=== PATIENT | male | born 1985 | race Caucasian/White ===

== ENCOUNTER 2016-09-12 22:30 | Observation (INO) | payer OTHER ==
[~2016-09-12] VITALS: Ht 177.8 cm; Wt 91.2 kg
[2016-09-12 22:34] VITALS: BP 130/93; PULSE 82; RESP 18; TEMP 98.6; O2SAT 98
[2016-09-12] MEDS ORDERED: ADDE20 PO (22:46)
[2016-09-12] MEDS ORDERED: SODIUM CHLOR 0.9% 1000 ML INJ 1,000 ML IV SCH (23:27)
[2016-09-12] MEDS ORDERED: ONDANSETRON HCL 4 MG/2 ML VIAL IVP ONE (23:30)
[2016-09-12] MEDS ORDERED: SODIUM CHLORIDE 0.9% FLUSH 5 ML FLUSH IVF PRN (23:30)
[2016-09-12] MEDS ORDERED: HYDROmorphone HCL PF 1 MG/ML VIAL IV PUSH ONE (23:30)
--- NOTE | 2016-09-12 23:42 | RADHPO ---
EXAM DATE/TIME: 09/12/2016 23:34 [facility] COMPARISON: No previous studies available for comparison. INDICATIONS : Patient states left side chest pains. MEDICAL HISTORY : None. SURGICAL HISTORY : None. ENCOUNTER: Initial ACUITY: 1 day PAIN SCORE: 7/10 LOCATION: Bilateral chest FINDINGS: A single view of the chest demonstrates the lungs to be symmetrically aerated without evidence of mas s, infiltrate or effusion. The cardiomediastinal contours are unremarkable. Osseous structures are intact. CONCLUSION: The lungs are clear. No evidence of pneumothorax. Jens Restrepo MD on September 12, 2016 at 23:40 Board Certified Radiologist. This report was verified electronically.
--- NOTE | 2016-09-12 23:43 | PD ---
HPI Chief Complaint: Abdominal Pain Time Seen by Provider: 23:27 Travel History International Travel<30 days: No Contact w/Intl Traveler<30days: No Traveled to known affect area: No History of Present Illness HPI 30-year-old male presents to the emergency department by private transportation for 6 hours of progressive worsening abdominal pain. Patient states proximally 5 hours prior to arrival to the emergency department he started noticing abdominal pain across the upper abdomen with discomfort there is progressive worsening. Patient now notes heel strike pain. Patient has had no nausea no vomiting or anorexia. Patient denies fever chills. No dysuria frequency urgency or diarrhea. Patient identifies that pain is primarily left-sided. Patient denies any referred pain into the flank or groin. Patient denies any testicular pain or penile discharge. Patient denies any testicular or groin injury or trauma. Patient rates pain 7/10 in intensity. No prior history of GI or abdominal pain or illness. No history of inflammatory bowel disease pancreatitis peptic ulcer disease or gallbladder disease. No previous abdominal surgeries. Patient does have history of ADHD and takes medication on an as-needed basis only. Admits to alcohol use and marijuana use. [facility] Past Medical History Narrative Medical ADHD ADD anxiety no surgeries positive alcohol use positive marijuana use nursing notes reviewed ADD: Yes ADHD: Yes Depression: Yes Diminished Hearing: No Tetanus Vaccination: > 5 Years Influenza Vaccination: No Past Surgical History Surgical History: No Previous Surgery Social History Alcohol Use: Yes (3 LIQUOR PER DAY ) Tobacco Use: No Substance Use: Yes (MARIJUANA) Allergies-Medications (Allergen,Severity, Reaction): Coded Allergies: No Known Allergies (Unverified , 09/12/16) Reported Meds & Prescriptions Reported Meds & Active Scripts Active Reported Adderall (Amphetamine-Dextroamphetamine) 20 Mg Tab 20 Mg PO DAILY Avoid late evening doses. Space doses at least 4 to 6 hours if more than once/day dosing. Review of Systems Except as stated in HPI: all other systems reviewed are Neg Physical Exam Narrative GENERAL: Well-developed well-nourished male in obvious discomfort no respiratory distress SKIN: Warm and dry. HEAD: Normocephalic. EYES: No scleral icterus. No injection or drainage. NECK: Supple, trachea midline. No JVD or lymphadenopathy. CARDIOVASCULAR: Regular rate and rhythm without murmurs, gallops, or rubs. RESPIRATORY: Breath sounds equal bilaterally. No accessory muscle use. GASTROINTESTINAL: Abdomen soft, bilateral lower quadrant tenderness with voluntary guarding and rebound right lower quadrant, nondistended. MUSCULOSKELETAL: No cyanosis, or edema. BACK: Nontender without obvious deformity. No CVA tenderness. Data Data Last Documented VS Vital Signs Date Time Temp Pulse Resp B/P Pulse Ox O2 Delivery O2 Flow Rate FiO2 09/13/16 03:15 87 16 133/62 99 Room Air 09/12/16 22:34 98.6 Orders Complete Blood Count With Diff (09/12/16 23:27) Comprehensive Metabolic Panel (09/12/16 23:27) Lipase (09/12/16 23:27) Urinalysis - C+S If Indicated (09/12/16 23:27) Iv Access Insert/Monitor (09/12/16 23:27) Ecg Monitoring (09/12/16 23:27) Oximetry (09/12/16 23:27) Ondansetron Inj (Zofran Inj) (09/12/16 23:30) Sodium Chlor 0.9% 1000 Ml Inj (Ns 1000 M (09/12/16 23:27) Sodium Chloride 0.9% Flush (Ns Flush) (09/12/16 23:30) Chest, Single Ap (09/12/16 23:27) Hydromorphone Pf Inj (Dilaudid Pf Inj) (09/12/16 23:30) NPO (09/12/16 23:27) Ct Abd/Pel W Iv Contrast(Rout) (09/13/16 23:27) Iohexol 350 Inj (Omnipaque 350 Inj) (09/13/16 02:48) Ketorolac Inj (Toradol Inj) (09/13/16 03:30) Sodium Chlor 0.9% 1000 Ml Inj (Ns 1000 M (09/13/16 04:15) Piperacil-Tazo 3.375 Gm Premix (Zosyn 3. (09/13/16 04:15) Hydromorphone Pf Inj (Dilaudid Pf Inj) (09/13/16 04:15) Admit Order (Ed Use Only) (09/13/16 ) Diet Npo (09/14/16 Breakfast) ^ Saline Lock (09/13/16 04:11) Resp Oxygen George C Titrat 1-4 L (09/13/16 ) ^ Notify Dr: Other (09/13/16 04:11) Sodium Chloride 0.9% Flush (Ns Flush) (09/13/16 09:00) Sodium Chloride 0.9% Flush (Ns Flush) (09/13/16 04:15) Labs Laboratory Tests Test 09/12/16 23:00 White Blood Count 12.8 TH/MM3 Red Blood Count 4.93 MIL/MM3 Hemoglobin 14.7 GM/DL Hematocrit 43.0 % Mean Corpuscular Volume 87.3 FL Mean Corpuscular Hemoglobin 29.9 PG Mean Corpuscular Hemoglobin 34.3 % Concent Red Cell Distribution Width 12.0 % Platelet Count 237 TH/MM3 Mean Platelet Volume 8.5 FL Neutrophils (%) (Auto) 77.9 % Lymphocytes (%) (Auto) 15.0 % Monocytes (%) (Auto) 6.3 % Eosinophils (%) (Auto) 0.4 % Basophils (%) (Auto) 0.4 % Neutrophils # (Auto) 9.9 TH/MM3 Lymphocytes # (Auto) 1.9 TH/MM3 Monocytes # (Auto) 0.8 TH/MM3 Eosinophils # (Auto) 0.1 TH/MM3 Basophils # (Auto) 0.1 TH/MM3 CBC Comment DIFF FINAL Differential Comment Urine Color STRAW Urine Turbidity CLEAR Urine pH 7.5 Urine Specific [place] 1.006 Urine Protein NEG mg/dL Urine Glucose (UA) NEG mg/dL Urine Ketones NEG mg/dL Urine Occult Blood NEG Urine Nitrite NEG Urine Bilirubin NEG Urine Leukocyte Esterase NEG Urine RBC 0-2 /hpf Urine WBC 0-2 /hpf Urine Squamous Epithelial 0-5 /hpf Cells Urine Bacteria NONE /hpf Microscopic Urinalysis Comment CULT NOT INDICATED Sodium Level 140 MEQ/L Potassium Level 3.6 MEQ/L Chloride Level 102 MEQ/L Carbon Dioxide Level 26.2 MEQ/L Anion Gap 12 MEQ/L Blood Urea Nitrogen 10 MG/DL Creatinine 1.00 MG/DL Estimat Glomerular Filtration 87 ML/MIN Rate Random Glucose 89 MG/DL Calcium Level 8.7 MG/DL Total Bilirubin 0.5 MG/DL Aspartate Amino Transf 62 U/L (AST/SGOT) Alanine Aminotransferase 107 U/L (ALT/SGPT) Alkaline Phosphatase 61 U/L Total Protein 7.5 GM/DL Albumin 3.9 GM/DL Lipase 78 U/L [facility] Medical Decision Making Medical Screen Exam Complete: Yes Emergency Medical Condition: Yes Medical Record Reviewed: Yes Interpretation(s) Laboratory Tests Test 09/12/16 23:00 White Blood Count 12.8 TH/MM3 Red Blood Count 4.93 MIL/MM3 Hemoglobin 14.7 GM/DL Hematocrit 43.0 % Mean Corpuscular Volume 87.3 FL Mean Corpuscular Hemoglobin 29.9 PG Mean Corpuscular Hemoglobin 34.3 % Concent Red Cell Distribution Width 12.0 % Platelet Count 237 TH/MM3 Mean Platelet Volume 8.5 FL Neutrophils (%) (Auto) 77.9 % Lymphocytes (%) (Auto) 15.0 % Monocytes (%) (Auto) 6.3 % Eosinophils (%) (Auto) 0.4 % Basophils (%) (Auto) 0.4 % Neutrophils # (Auto) 9.9 TH/MM3 Lymphocytes # (Auto) 1.9 TH/MM3 Monocytes # (Auto) 0.8 TH/MM3 Eosinophils # (Auto) 0.1 TH/MM3 Basophils # (Auto) 0.1 TH/MM3 CBC Comment DIFF FINAL Differential Comment Urine Color STRAW Urine Turbidity CLEAR Urine pH 7.5 Urine Specific [place] 1.006 Urine Protein NEG mg/dL Urine Glucose (UA) NEG mg/dL Urine Ketones NEG mg/dL Urine Occult Blood NEG Urine Nitrite NEG Urine Bilirubin NEG Urine Leukocyte Esterase NEG Urine RBC 0-2 /hpf Urine WBC 0-2 /hpf Urine Squamous Epithelial 0-5 /hpf Cells Urine Bacteria NONE /hpf Microscopic Urinalysis Comment CULT NOT INDICATED Sodium Level 140 MEQ/L Potassium Level 3.6 MEQ/L Chloride Level 102 MEQ/L Carbon Dioxide Level 26.2 MEQ/L Anion Gap 12 MEQ/L Blood Urea Nitrogen 10 MG/DL Creatinine 1.00 MG/DL Estimat Glomerular Filtration 87 ML/MIN Rate Random Glucose 89 MG/DL Calcium Level 8.7 MG/DL Total Bilirubin 0.5 MG/DL Aspartate Amino Transf 62 U/L (AST/SGOT) Alanine Aminotransferase 107 U/L (ALT/SGPT) Alkaline Phosphatase 61 U/L Total Protein 7.5 GM/DL Albumin 3.9 GM/DL Lipase 78 U/L Last Impressions Abdomen/Pelvis CT 09/13/16 5260 Signed Impressions: Service Date/Time: Tuesday, September 13, 2016 02:42 - CONCLUSION: Negative CT abdomen/pelvis with contrast. Jens Restrepo MD Chest X-Ray 09/12/16 [id number] Signed Impressions: Service Date/Time: September 23:34 - CONCLUSION: The lungs are clear. No evidence of pneumothorax. Jens Restrepo MD CT A/P addendum: CONCLUSION: Negative CT abdomen/pelvis with contrast. Jens Restrepo MD on September 13, 2016 at 3:16 Board Certified Radiologist. This report was verified electronically. ADDENDUM: This case has been discussed with Dr. Estrada. In the right lower quadrant, there is a tubular structure believed to represent the appendix, best seen on axial image #59. This extends superior and medial to the cecum. This measures 12 mm in size and there is some questionable induration of the fat about this tubular structure. There is no free fluid in the right lower quadrant or in the pelvis. The patient has point tenderness in this same area and the findings are suspicious for an inflamed appendix. No evidence of rupture. Jens Restrepo MD on September 13, 2016 at 4:06 Board Certified Radiologist. This report was verified electronically. Differential Diagnosis Abdominal pain, appendicitis, viscus perforation, pancreatitis, colitis, diverticulitis, peptic ulcer disease also to consider urethritis epididymoorchitis Narrative Course Patient kept nothing by mouth IV access obtained specimens collected and sent for resulting stat CT abdomen and pelvis ordered patient administered Zofran 4 mg IV along with Dilaudid 0.5 mg IV and liter bolus of normal saline. Patient waiting to go to CT at [facility] as CT at [place] is broken Patient returns from CT imaging report is read as no acute abnormality patient is informed of results and states that he is feeling improved however on repeat examination patient continues to have localized right lower quadrant tenderness and voluntary guarding very concerning for acute appendicitis therefore case is discussed with on-call reading radiologist Dr. Restrepo who upon repeat evaluation of the study with comparison to patient's clinical exam identifies that study is actually consistent with appendicitis. Call placed to [facility] operator general surgery Physician Communication Physician Communication case disocussed with Dr Rider --has reread CT a/p with attention to the RLQ and agrees scan is consistent with physical exam for appendicitis and will add an addendum to the prior report; discussed with Dr Calvo --send to [facility] to surgery service obs admission w zosyn Diagnosis Primary Impression: Appendicitis, acute Admitting Information Admitting Physician Requests: Observation Zoe Estrada MD Sep 12, 2016 23:43
[2016-09-12 23:47] LABS: AUTOMATED NEUTROPHIL # 9.9 TH/MM3 (1.8-7.7); BASOPHIL # 0.1 TH/MM3 (0-0.2); BASOPHIL % 0.4 % (0.0-2.0); EOSINOPHIL # 0.1 TH/MM3 (0-0.4); EOSINOPHIL % 0.4 % (0.0-4.0); HEMO FLAGS DIFF FINAL; LYMPHOCYTE # 1.9 TH/MM3 (1.0-4.8); MEAN CELL VOLUME 87.3 FL (80.0-100.0); MEAN CORPUSCULAR HEMOGLOBIN 29.9 PG (27.0-34.0); MEAN CORPUSCULAR HGB CONC 34.3 % (32.0-36.0); MONO % 6.3 % (0.0-8.0); NEUT % 77.9 % (16.0-70.0); PLATELET COUNT 237 TH/MM3 (150-450); RED BLOOD COUNT 4.93 MIL/MM3 (4.50-5.90); WHITE BLOOD COUNT 12.8 TH/MM3 (4.0-11.0)
[2016-09-12 23:48] LABS: BLOOD, URINE NEG (NEG); GLUCOSE,URINE NEG (NEG); KETONE, URINE NEG (NEG); NITRITE,URINE NEG (NEG); PH, URINE 7.5 (5.0-8.5)
[2016-09-12 23:53] LABS: RBC, URINE 0-2 /hpf (0-3); SQUAMOUS EPITHELIAL CELL URINE 0-5 /hpf (0-5); URINE COLOR STRAW (YELLW/STRAW); WBC, URINE 0-2 /hpf (0-5)
[2016-09-12 23:54] LABS: COMMENT (UR) CULT NOT INDICATED; CULTURE IF INDICATED CULT NOT INDICATED
[2016-09-12 23:55] LABS: CHLORIDE 102 MEQ/L (98-107); POTASSIUM 3.6 MEQ/L (3.5-5.1); SODIUM (NA) 140 MEQ/L (136-145)
[2016-09-12 23:59] LABS: ANION GAP 12 MEQ/L (5-15); BICARBONATE 26.2 MEQ/L (21.0-32.0); BLOOD UREA NITROGEN 10 MG/DL (7-18)
[2016-09-13 00:01] LABS: ALT (GPT) 107 U/L (12-78); AST (GOT) 62 U/L (15-37)
[2016-09-13 00:02] LABS: GLOMERULAR FILTRATION RATE 87 ML/MIN (>89)
[2016-09-13 00:03] LABS: TOTAL BILIRUBIN ADULT 0.5 MG/DL (0.2-1.0)
[2016-09-13 00:04] LABS: ALKALINE PHOSPHATASE 61 U/L (45-117)
[2016-09-13 01:15] VITALS: BP 137/72; PULSE 78; RESP 16; O2SAT 99
[2016-09-13] MEDS ORDERED: IOHEXOL 350 MG/ML 10 ML VIAL (for RAD DIAG) IV ONE (02:48)
[2016-09-13 03:15] VITALS: BP 133/62; PULSE 87; RESP 16; O2SAT 99
--- NOTE | 2016-09-13 03:19 | RADRPT ---
EXAM DATE/TIME: 09/13/2016 02:42 This report includes an Addendum and supersedes previous reports for this exam. [facility] COMPARISON: No previous studies available for comparison. INDICATIONS : Left side upper abdominal pain with nausea. IV CONTRAST: 95 cc Omnipaque 350 (iohexol) IV ORAL CONTRAST: No oral contrast ingested. RADIATION DOSE: 8.99 CTDIvol (mGy) MEDICAL HISTORY : None SURGICAL HISTORY : None. ENCOUNTER: Initial ACUITY: 1 day PAIN SCALE: 6/10 LOCATION: Left upper quadrant abdomen TECHNIQUE: Volumetric scanning of the abdomen and pelvis was performed. Using automated exposure control and ad justment of the mA and/or kV according to patient size, radiation dose was kept as low as reasonably achievable to obtain optimal diagnostic quality images. FINDINGS: LOWER LUNGS: The visualized lower lungs are clear. LIVER: Homogeneous density without lesion. There is no dilation of the biliary tree. No calcified gallston es. SPLEEN: Normal size without lesion. PANCREAS: Within normal limits. KIDNEYS: Normal in size and shape. There is no mass, stone or hydronephrosis. ADRENAL GLANDS: Within normal limits. VASCULAR: There is no aortic aneurysm. BOWEL/MESENTERY: The stomach, small bowel, and colon demonstrate no acute abnormality. There is no free intraperitone al air or fluid. ABDOMINAL WALL: Within normal limits. RETROPERITONEUM: There is no lymphadenopathy. BLADDER: No wall thickening or mass. REPRODUCTIVE: Within normal limits. INGUINAL: There is no lymphadenopathy or hernia. MUSCULOSKELETAL: Within normal limits for patient age. CONCLUSION: Negative CT abdomen/pelvis with contrast. Jens Restrepo MD on September 13, 2016 at 3:16 Board Certified Radiologist. This report was verified electronically. ADDENDUM: This case has been discussed with Dr. Estrada. In the right lower quadrant, there is a tubular struct ure believed to represent the appendix, best seen on axial image #59. This extends superior and medi al to the cecum. This measures 12 mm in size and there is some questionable induration of the fat ab out this tubular structure. There is no free fluid in the right lower quadrant or in the pelvis. Th e patient has point tenderness in this same area and the findings are suspicious for an inflamed appe ndix. No evidence of rupture. Jens Restrepo MD on September 13, 2016 at 4:06 Board Certified Radiologist. This report was verified electronically.
[2016-09-13] MEDS ORDERED: KETOROLAC TROMETHAMINE 30 MG/ML (IVP) VIAL IV PUSH ONE (03:30)
[2016-09-13] MEDS ORDERED: PIPERACIL-TAZO 3.375 GM PREMIX 50 ML IV ONE ×2 (04:15→10:45)
[2016-09-13] MEDS ORDERED: SODIUM CHLORIDE 0.9% FLUSH 5 ML FLUSH IVF PRN (04:15)
[2016-09-13] MEDS ORDERED: HYDROmorphone HCL PF 1 MG/ML VIAL IV PUSH ONE (04:15)
[2016-09-13] MEDS: SODIUM CHLOR 0.9% 1000 ML INJ 1,000 ML IV SCH ×2 (04:24→14:18)
[2016-09-13 04:43] VITALS: O2SAT 96
[2016-09-13] MEDS ORDERED: KETOROLAC TROMETHAMINE 60 MG/2 ML (IM) VIAL IM ONE (07:45)
[2016-09-13] MEDS ORDERED: NEOSTIGMINE 3 MG/3 ML SYR IV ONE (07:45)
[2016-09-13] MEDS ORDERED: ONDANSETRON HCL 4 MG/2 ML VIAL IV PUSH ONE (07:45)
[2016-09-13] MEDS ORDERED: LACTATED RINGER'S 1000 ML INJ 1,000 ML IV ONE (07:45)
[2016-09-13] MEDS ORDERED: PROPOFOL 200 MG/20 ML AMP IV ONE (07:45)
[2016-09-13] MEDS ORDERED: SODIUM CHLORIDE 0.9% FLUSH 5 ML FLUSH IVF SCH (09:00)
[2016-09-13] MEDS ORDERED: ACETAMINOPHEN 1000 MG/100 ML VIAL IV ONE (09:36)
[2016-09-13] MEDS ORDERED: FAMOTIDINE 20 MG/2 ML VIAL ONE (09:36)
[2016-09-13] MEDS ORDERED: HYDROmorphone HCL PF 2 MG/ML VIAL ONE (09:53)
[2016-09-13] MEDS ORDERED: MIDAZOLAM HCL 2 MG/2 ML VIAL ONE (09:53)
[2016-09-13] MEDS ORDERED: fentaNYL CITRATE 250 MCG/5 ML AMP ONE (09:53)
[2016-09-13] MEDS ORDERED: BUPIVACAINE/EPINEPHRINE 0.25% PF 30 ML VIAL INFIL ONE (10:22)
[2016-09-13] MEDS ORDERED: SUGAMMADEX SODIUM 200 MG/2 ML VIAL IV PUSH ONE ×2 (10:43)
[2016-09-13 11:17] VITALS: PULSE 93
--- NOTE | 2016-09-13 11:17 | HHI.PR ---
cc: Demetrius Calvo MD Immediate Post Op Note Procedure Date: Sep 13, 2016 Pre Op Diagnosis: Acute appendicitis Post Op Diagnosis: Acute appendicitis without perforation Surgeon: Demetrius Calvo Senior Analysis Specialist(s): Vin Hernadez CST Procedure: Laparoscopic appendectomy Complications: None Specimen(s) removed: Appendix to pathology Estimated blood loss: <10 ml Anesthesia: General Drains: None IVF (1200 ml) Patient to: PACU Patient Condition: Good Date/Time of Procedure: SEE SURGICAL CARE RECORD Demetrius Calvo MD Sep 13, 2016 11:17
[2016-09-13] MEDS ORDERED: HYDR-3288 PO (11:23)
[2016-09-13] MEDS ORDERED: ACETAMINOPHEN/HYDROcodone 325 MG/7.5 MG TAB PO PRN ×2 (11:30)
[2016-09-13] MEDS ORDERED: MORPHINE SULFATE 4 MG/ML INJ IV PUSH PRN (11:30)
[2016-09-13] MEDS ORDERED: DO NOT ADM ANY ANTICOAGULANT DRUGS XX PRN (11:45)
[2016-09-13 16:00] VITALS: BP 117/73; PULSE 71; RESP 18; TEMP 97.5; O2SAT 98
--- NOTE | 2016-09-15 17:59 | MH ---
cc: TIMOTHY BOYLE M.D. DATE OF ADMISSION: 09/13/2016 REASON FOR ADMISSION: Acute appendicitis. HISTORY OF PRESENT ILLNESS: The patient is a 30-year-old male who presented to the emergency department for 6 hours of progressively worsening abdominal pain. The patient reports that the pain is in the upper abdomen and the umbilicus. The patient denies fever or chills. CT scan demonstrated a dilated appendix in the right midabdomen consistent with appendicitis. PAST MEDICAL HISTORY: Past medical history significant for: 1. ADHD. 2. Depression. SOCIAL HISTORY: The patient has uses alcohol with three drinks of liquor per day. Does not smoke but does use marijuana. ALLERGIES: The patient has no known allergies. MEDICATIONS: Medications include Adderall 20 milligrams daily. REVIEW OF SYSTEMS: All other systems are negative except as indicated in the history present illness. PHYSICAL EXAMINATION: GENERAL: The physical exam reveals a well-nourished male in no acute distress. VITAL SIGNS: Blood pressure is 133/62, pulse 87, respirations 16, 99% sat on room air, temperature 98.6. HEAD, EYES, EARS, NOSE, THROAT: Sclerae anicteric. Pupils are reactive. NECK: Neck is supple. Throat is clear. CHEST: Clear to auscultation. CARDIAC: Cardiac exam reveals regular rate and rhythm. ABDOMEN: Soft with tenderness in the right midabdomen and the right lower quadrant with guarding and some rebound. PULSES: Pulses are intact. NEUROLOGIC EXAMINATION: Cranial nerves II-XII grossly intact. Sensory and motor exam is grossly intact. LABORATORY VALUES: WBCs are 12.8, platelets 237,000. Electrolytes demonstrate slightly elevated AST and ALT, although total bilirubin, alkaline phosphatase are normal. BUN and creatinine are normal and potassium is 3.6. IMAGING STUDIES: CT scan is as indicated above with a tubular structure 12 mm in size with some induration of the fat around the tubular structure. ASSESSMENT: Acute appendicitis without evidence of perforation at this time. I have recommended that he undergo appendectomy. He is agreeable to this. I have discussed risks of the procedure including but not limited to bleeding, infection, abscess formation requiring drainage, adhesion formation, leakage, and need for reoperation. I have discussed remedies consequences, alternatives and convalescence; he vocalizes understanding and agrees to proceed. MD SUSAN Whitmore/PAUL /5:44 PM /5:53 PM
--- NOTE | 2016-09-15 19:05 | MP ---
cc: TIMOTHY CALVO M.D. DATE OF SURGERY: 09/13/2016. PREOPERATIVE DIAGNOSIS: Acute appendicitis. POSTOPERATIVE DIAGNOSIS: Acute appendicitis without perforation. OPERATIVE PROCEDURE PERFORMED: 1. Laparoscopic appendectomy. 2. Laparoscopic lysis of adhesions. SURGEON: Timothy Calvo MD. ANESTHESIA: General endotracheal anesthesia. ESTIMATED BLOOD LOSS: Less than 10 mL. FLUIDS: 1200 mL crystalloid. COMPLICATIONS: None. DRAINS: None. SPECIMEN: Appendix to pathology. DESCRIPTION OF THE PROCEDURE IN DETAIL: The patient was taken to the operating room and placed on the operating table in the supine position. After an adequate level of general endotracheal anesthesia was achieved, the abdomen was prepped and draped in the usual fashion. Time-out was taken confirming the correct patient, site and procedure to be performed. Skin and subcutaneous tissue was infiltrated with local anesthetic and incision made through the umbilicus. A small umbilical hernia was reduced, and that this point, a balloon trocar was inserted and the balloon inflated. The abdomen was insufflated. A 30-degree 5-mm lens was inserted and the patient placed in Trendelenburg position. Two 5-mm trocars were placed with the first the right lower quadrant and a second in the suprapubic region. Both entered the abdominal cavity under direct vision uneventfully. The patient was noted to have some adhesions around the cecum and in the right upper quadrant with omentum attached to the anterior abdominal wall. At this point, the adhesions around the cecum were gently taken down utilizing the harmonic scalpel and blunt dissection. The appendix came into view and the mesoappendix was divided to the harmonic scalpel back to the base of the appendix. A 0-PDS Endoloop was slipped over the appendix and this was cinched down beyond the acute inflammatory process. The appendix was divided 1 cm distal to this, placed into an EndoCatch device, and removed via the umbilical port while observing via the right lower quadrant port site. The specimen was passed off the table. The abdomen was reexamined and the right lower quadrant irrigated as well as the pelvis. All irrigation was aspirated. At this point, attention was turned to the right mid and upper abdomen where the patient was noted to have a significant amount of omentum adhesed to the anterior abdominal wall. This was taken down with the harmonic scalpel and minimal use of blunt dissection. When this had been accomplished, this was seen to be hemostatic. The right lower quadrant was examined once again and appendiceal stump and mesoappendix were seen to be clean and dry. The pelvis was reexamined and found to be clean as well. Insufflation was discontinued. The 5 mm trocars were removed under direct vision. No bleeding was noted from the trocar sites. The laparoscope and umbilical port were then removed. The fascia was closed in the umbilicus with both simple interrupted and [id number] 0 Vicryl suture. The remaining local anesthetic was injected into the three trocar sites. The skin was closed at all three trocar sites with 4-0 Vicryl in an interrupted buried fashion. All trocar sites were dressed with Steri-Strips. The patient was extubated and taken back to the recovery room in stable condition. He tolerated the procedure well. MD SUSAN Whitmore/JCNataliya /5:49 PM /6:57 PM
--- NOTE | 2016-10-10 09:17 | MP ---
cc: TIMOTHY BOYLE M.D. DATE OF SURGERY 09/13/2016 PROCEDURE Laparoscopic appendectomy. PREOPERATIVE DIAGNOSIS Acute appendicitis POSTOPERATIVE DIAGNOSIS Acute appendicitis without perforation. ANESTHESIA General endotracheal. SURGEON MD Umesh ESTIMATED BLOOD LOSS Less than 10 mL. FLUIDS 1200 mL crystalloid COMPLICATIONS None. DRAINS None. SPECIMEN Appendix to pathology. PROCEDURE IN DETAIL The patient was taken to the operating room and placed on the operating table in the supine position. After an adequate level of general endotracheal anesthesia was achieved, the abdomen was prepped and draped in the usual fashion. Time-out was taken confirming the correct patient, site and procedure to be performed. The skin and subcutaneous tissue was infiltrated with local anesthetic and an incision made in the umbilicus and carried through the fascia sharply. The peritoneal cavity was directly visualized. A 12-mm balloon trocar was inserted and the balloon inflated. The abdomen was insufflated and the patient placed in Trendelenburg position. Two 5-mm trocars were placed with the first in the suprapubic region and the second in the right lower quadrant. Both entered the abdominal cavity under direct vision uneventfully. The appendix was seen to be grossly inflamed but not necrotic. The mesoappendix was divided with the harmonic scalpel down to the base of the appendix in a bloodless fashion. A 0 PDS Endoloop was slipped over the appendix and cinched down at the base below active inflammatory process. The appendix was divided 1 cm distal to this with the harmonic scalpel and placed into an EndoCatch device. While observing via the 5-mm right lower quadrant trocar site, the appendix was removed via the umbilical port and passed off the table. The pelvis was examined and the wound irrigated and all irrigation aspirated. The appendiceal stump and mesoappendix were seen to be clean and dry. Insufflation was discontinued and the 5-mm trocars were removed under direct vision. No bleeding was noted from the trocar sites. The laparoscope and umbilical port were then removed. The fascia was closed in the umbilicus with both a simple interrupted [id number] 0 Vicryl suture. The remaining local anesthetic was injected into all three trocar sites. The skin was closed at the trocar sites with 4-0 Vicryl in an interrupted buried fashion. All trocar sites were dressed with Steri-Strips. The patient was extubated and taken back to the recovery room in stable condition. He tolerated the procedure well. MD SUSAN Whitmore/HODA /10:14 PM /9:12 AM
== END 2016-09-13 18:23 | disposition home or self-care (01) ==
LOC: PHED 22:30 → PHEDA 09-13 04:14 → HSDI 09-13 07:06 → N07A 09-13 14:06
PROVIDERS: ADMIT Surgery Trauma Surgery; ATTEND Surgery Trauma Surgery
DX: K35.80 Unspecified acute appendicitis (principal)
CPT/HCPCS: 00840; 44970; 71010; 74177; 80053; 81001; 83690; 85025; 88304; 96361; 96374; 96375; 99285; G0378; J0131; J1170; J1885; J2250; J2405; J2543; J2710; J3010; J7030; J7120; Q9967

== ENCOUNTER 2018-02-04 00:35 | Emergency (ER) | payer OTHER ==
[~2018-02-04] VITALS: Ht 175.3 cm; Wt 78.0 kg
[~2018-02-04 00:35] MED LIST: ADDE20 PO; HYDR-3288 PO
[2018-02-04 01:11] VITALS: BP 133/79; PULSE 77; RESP 15; TEMP 98.4; O2SAT 99
[2018-02-04 01:57] LABS: ALBUMIN 4.2 GM/DL (3.4-5.0); ALT (GPT) 25 U/L (12-78); AST (GOT) 16 U/L (15-37); BLOOD UREA NITROGEN 13 MG/DL (7-18); CALCIUM 9.1 MG/DL (8.5-10.1); CHLORIDE 105 MEQ/L (98-107); CREATININE 1.12 MG/DL (0.60-1.30); GLOMERULAR FILTRATION RATE 76 ML/MIN (>89); GLUCOSE,RANDOM 131 MG/DL (74-106); SODIUM (NA) 142 MEQ/L (136-145)
[2018-02-04 01:59] LABS: ALKALINE PHOSPHATASE 87 U/L (45-117); AUTOMATED NEUTROPHIL # 8.7 TH/MM3 (1.8-7.7); BASOPHIL # 0.1 TH/MM3 (0-0.2); BASOPHIL % 0.6 % (0.0-2.0); EOSINOPHIL % 0.3 % (0.0-4.0); HEMATOCRIT 42.7 % (39.0-51.0); HEMOGLOBIN 15.2 GM/DL (13.0-17.0); LYMPH % 16.2 % (9.0-44.0); LYMPHOCYTE # 1.8 TH/MM3 (1.0-4.8); MEAN CELL VOLUME 87.4 FL (80.0-100.0); MEAN CORPUSCULAR HGB CONC 35.5 % (32.0-36.0); MEAN PLATELET VOLUME 8.6 FL (7.0-11.0); MONO % 6.8 % (0.0-8.0); MONOCYTE # 0.8 TH/MM3 (0-0.9); NEUT % 76.1 % (16.0-70.0); PLATELET COUNT 247 TH/MM3 (150-450); RED BLOOD COUNT 4.89 MIL/MM3 (4.50-5.90); RED CELL DISTRIBUTION WIDTH 12.6 % (11.6-17.2); TOTAL BILIRUBIN ADULT 0.3 MG/DL (0.2-1.0); TOTAL PROTEIN 7.6 GM/DL (6.4-8.2); WHITE BLOOD COUNT 11.4 TH/MM3 (4.0-11.0)
--- NOTE | 2018-02-04 02:15 | PD ---
HPI Chief Complaint: Anxiety Time Seen by Provider: 00:45 Travel History International Travel<30 days: No Contact w/Intl Traveler<30days: No Traveled to known affect area: No History of Present Illness HPI Patient is a 32-year-old male [facility]. Patient reports that he feels very anxious, he feels like he is not controlling his thoughts like his thoughts are racing. He reports that he was recently in a rehab/psychiatric facility for 4 days, while he was there he was on Effexor and doxepin. He stopped those abruptly upon discharge several days ago. He was not prescribed them on discharge specifically. 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 Prior to going to rehab patient had been on clonazepam, he states that he ended up abusing this and does not want any medications like this. He went to rehab because he was using marijuana. The patient feels like he should not have to need medications. Symptom onset disorder symptoms are moderate in nature. Symptoms are likely exacerbated due to situational stressors such as a sister suicide and currently being in a doctorate program. Patient is , he served in the . [employer] Past Medical History ADD: Yes ADHD: Yes Depression: Yes Diminished Hearing: No Medical other: Yes (ADD) Past Surgical History Abdominal Surgery: Yes (LAP. ALONSO 2017) Social History Alcohol Use: Yes (3 LIQUOR PER DAY ) Tobacco Use: No Substance Use: Yes (MARIJUANA) Allergies-Medications (Allergen,Severity, Reaction): Coded Allergies: No Known Allergies (Unverified , 09/12/16) Reported Meds & Prescriptions Reported Meds & Active Scripts Active No Active Prescriptions or Reported Medications Review of Systems Except as stated in HPI: all other systems reviewed are Neg Psychiatric: Positive: Anxiety, No: Suicidal Ideations, Substance Abuse Physical Exam Narrative GENERAL: Well-developed, well-nourished, well-kept male. Presenting in no acute distress. SKIN: Warm and dry. HEAD: Atraumatic. Normocephalic. EYES: Pupils equal and round. No scleral icterus. No injection or drainage. ENT: No nasal bleeding or discharge. Mucous membranes pink and moist. NECK: Trachea midline. No JVD. CARDIOVASCULAR: Regular rate and rhythm. RESPIRATORY: No accessory muscle use. Clear to auscultation. Breath sounds equal bilaterally. GASTROINTESTINAL: Abdomen soft, non-tender, nondistended. Hepatic and splenic margins not palpable. MUSCULOSKELETAL: Extremities without clubbing, cyanosis, or edema. No obvious deformities. NEUROLOGICAL: Awake and alert. No obvious cranial nerve deficits. Motor grossly within normal limits. Five out of 5 muscle strength in the arms and legs. Normal speech. PSYCHIATRIC: Anxious mood and affect; insight and judgment normal. Data Data Last Documented VS Vital Signs Date Time Temp Pulse Resp B/P (MAP) Pulse Ox O2 Delivery O2 Flow Rate FiO2 02/04/18 01:11 98.4 77 15 133/79 (97) 99 Orders Orders Complete Blood Count With Diff (02/04/18 01:10) Comprehensive Metabolic Panel (02/04/18 01:10) Psych Screen (02/04/18 01:10) Drug Screen, Random Urine (02/04/18 01:10) Hydroxyzine Pamoate (Vistaril) (02/04/18 02:15) Labs Laboratory Tests Test 02/04/18 01:35 02/04/18 01:57 White Blood Count 11.4 TH/MM3 Red Blood Count 4.89 MIL/MM3 Hemoglobin 15.2 GM/DL Hematocrit 42.7 % Mean Corpuscular Volume 87.4 FL Mean Corpuscular Hemoglobin 31.0 PG Mean Corpuscular Hemoglobin Concent 35.5 % Red Cell Distribution Width 12.6 % Platelet Count 247 TH/MM3 Mean Platelet Volume 8.6 FL Neutrophils (%) (Auto) 76.1 % Lymphocytes (%) (Auto) 16.2 % Monocytes (%) (Auto) 6.8 % Eosinophils (%) (Auto) 0.3 % Basophils (%) (Auto) 0.6 % Neutrophils # (Auto) 8.7 TH/MM3 Lymphocytes # (Auto) 1.8 TH/MM3 Monocytes # (Auto) 0.8 TH/MM3 Eosinophils # (Auto) 0.0 TH/MM3 Basophils # (Auto) 0.1 TH/MM3 CBC Comment DIFF FINAL Differential Comment Blood Urea Nitrogen 13 MG/DL Creatinine 1.12 MG/DL Random Glucose 131 MG/DL Total Protein 7.6 GM/DL Albumin 4.2 GM/DL Calcium Level 9.1 MG/DL Alkaline Phosphatase 87 U/L Aspartate Amino Transf (AST/SGOT) 16 U/L Alanine Aminotransferase (ALT/SGPT) 25 U/L Total Bilirubin 0.3 MG/DL Sodium Level 142 MEQ/L Potassium Level 3.3 MEQ/L Chloride Level 105 MEQ/L Carbon Dioxide Level 26.0 MEQ/L Anion Gap 11 MEQ/L Estimat Glomerular Filtration Rate 76 ML/MIN Urine Opiates Screen NEG Urine Barbiturates Screen NEG Urine Amphetamines Screen NEG Urine Benzodiazepines Screen NEG Urine Cocaine Screen NEG Urine Cannabinoids Screen POS MDM Medical Decision Making Medical Screen Exam Complete: Yes Emergency Medical Condition: Yes Interpretation(s) Vital Signs Date Time Temp Pulse Resp B/P (MAP) Pulse Ox O2 Delivery O2 Flow Rate FiO2 02/04/18 01:11 98.4 77 15 133/79 (97) 99 Differential Diagnosis Anxiety versus panic disorder versus metabolic abnormality versus thyroid disorder versus other Narrative Course Patient is a well-appearing 32-year-old male presenting voluntarily for psychiatric evaluation secondary to anxiety. Patient's vital signs are stable, Mental health screening discussed with the patient. Psychiatric screen ordered. Patient be given Vistaril orally now. Labs reviewed, no acute findings identified other than a potassium level of 3.3, or replacement ordered. Patient is medically clear for psychiatric evaluation. Diagnosis Primary Impression: Medical clearance for psychiatric admission Scripts No Active Prescriptions or Reported Meds Condition: Stable Brianna Davis February 04, 2018 02:14
[2018-02-04] MEDS ORDERED: POTASSIUM CHLORIDE 10 MEQ CONTROLLED RELEASE TAB PO ONE (03:30)
[2018-02-04 07:49] VITALS: BP 130/74; PULSE 86; RESP 16; O2SAT 99
--- NOTE | 2018-02-04 12:47 | PD ---
Physical Exam Date Seen by Provider: February 04, 2018 Time Seen by Provider: 12:46 Narrative 32-year-old male was in the emergency department for psychiatric evaluation. He was seen and cleared by the psychiatric nurse practitioner. Patient is stable for discharge. He denies any thoughts of hurting himself or anybody else to me. His is at bedside. Patient feels comfortable going home. Data Data Last Documented VS Vital Signs Date Time Temp Pulse Resp B/P (MAP) Pulse Ox O2 Delivery O2 Flow Rate FiO2 02/04/18 07:49 86 16 130/74 (92) 99 Room Air 02/04/18 01:11 98.4 Orders Orders Complete Blood Count With Diff (02/04/18 01:10) Comprehensive Metabolic Panel (02/04/18 01:10) Psych Screen (02/04/18 01:10) Drug Screen, Random Urine (02/04/18 01:10) Hydroxyzine Pamoate (Vistaril) (02/04/18 02:15) Potassium Chloride (Kcl) (02/04/18 03:30) Diet Regular Basic (02/04/18 Breakfast) Ed Discharge Order (02/04/18 12:45) Labs Laboratory Tests Test 02/04/18 01:35 02/04/18 01:57 White Blood Count 11.4 TH/MM3 Red Blood Count 4.89 MIL/MM3 Hemoglobin 15.2 GM/DL Hematocrit 42.7 % Mean Corpuscular Volume 87.4 FL Mean Corpuscular Hemoglobin 31.0 PG Mean Corpuscular Hemoglobin Concent 35.5 % Red Cell Distribution Width 12.6 % Platelet Count 247 TH/MM3 Mean Platelet Volume 8.6 FL Neutrophils (%) (Auto) 76.1 % Lymphocytes (%) (Auto) 16.2 % Monocytes (%) (Auto) 6.8 % Eosinophils (%) (Auto) 0.3 % Basophils (%) (Auto) 0.6 % Neutrophils # (Auto) 8.7 TH/MM3 Lymphocytes # (Auto) 1.8 TH/MM3 Monocytes # (Auto) 0.8 TH/MM3 Eosinophils # (Auto) 0.0 TH/MM3 Basophils # (Auto) 0.1 TH/MM3 CBC Comment DIFF FINAL Differential Comment Blood Urea Nitrogen 13 MG/DL Creatinine 1.12 MG/DL Random Glucose 131 MG/DL Total Protein 7.6 GM/DL Albumin 4.2 GM/DL Calcium Level 9.1 MG/DL Alkaline Phosphatase 87 U/L Aspartate Amino Transf (AST/SGOT) 16 U/L Alanine Aminotransferase (ALT/SGPT) 25 U/L Total Bilirubin 0.3 MG/DL Sodium Level 142 MEQ/L Potassium Level 3.3 MEQ/L Chloride Level 105 MEQ/L Carbon Dioxide Level 26.0 MEQ/L Anion Gap 11 MEQ/L Estimat Glomerular Filtration Rate 76 ML/MIN Urine Opiates Screen NEG Urine Barbiturates Screen NEG Urine Amphetamines Screen NEG Urine Benzodiazepines Screen NEG Urine Cocaine Screen NEG Urine Cannabinoids Screen POS MDM Supervised Visit with BABAR: No Diagnosis Primary Impression: Medical clearance for psychiatric admission Referrals: Psychiatrist call for appointment Patient Instructions: General Instructions Med/Other Pt SpecificInfo: No Change to Meds Scripts No Active Prescriptions or Reported Meds Disposition: 01 DISCHARGE HOME Condition: Stable Samanta Levine February 04, 2018 12:47
--- NOTE | 2018-02-04 13:05 | PD ---
History of Present Illness Chief Complaint: Anxiety Time Seen by Provider: 11:22 Travel History International Travel<30 Days: No Contact w/Intl Traveler<30days: No Known affected area: No Legal Status Legal Status: Voluntary History of Present Illness: This is a 32-year-old , male who presents voluntarily to this facility for reported anxiety attacks. Patient is unknown to this facility for psychiatric issues. Reviewed electronic medical records, labs, discussed case with staff. Toxicology screen was positive for cannabinoids. Patient's nurse reports that he has been pleasant and interacting appropriately with staff throughout his visit. Patient was evaluated in his room in the main ED. He is awake, alert, and oriented 4. His speech is clear, logical, and organized. It is normal rate and tone. There is no indication of internal stimulation nor of thought blocking. He denies being suicidal, homicidal, experiencing auditory or visual hallucinations. I can elicit no delusional material. He relates that he has been at the [facility] which has been causing him some stress. He also states that his sister committed suicide May 2017. He reports that he and his were her primary care providers at that time. He relates that he still feeling some stress from that as well. He does have a history of episodic depression. And states he was on anti-depressant "years ago". More recently he checked himself into the [facility] clinic as he felt he was having substance abuse issues with marijuana. He reports that prior to checking himself then he had been going to school and coming home and locking himself in the house. He describes extreme anxiety during that time. While in detox at [facility] he reports the decision was made that he benefit more from psychiatric care and was moved to that part of the facility. He states that he was started on Effexor and doxepin. When he opted to leave AMA he states that they did not send prescriptions with him so he has not had his medications since then. He reports that he is happily and lives with his . He does have an appointment with Dr. Jackson his outpatient psychiatrist and states that the office said they will work him in once he is discharged. He does have a history of cutting nothing recent and reports one attempted hanging himself in 2002. Strong familial history of mental illness. PFSH Past Medical History ADD: Yes ADHD: Yes Depression: Yes Diminished Hearing: No Medical other: Yes (ADD) Past Surgical History Abdominal Surgery: Yes (LAP. APPY 2016) Psychiatric History Psychiatric History Anxiety history of depression. Recently was treated voluntarily at the [facility]. Hx Psychiatric Treatment: DEPRESSION/ ANXIETY History of Inpatient Treatment: No Guns or firearms in home: No Social History Hx Alcohol Use: Yes (3 LIQUOR PER DAY ) Hx Tobacco Use: No Hx Substance Use: Yes (MARIJUANA) Substance Use Type: Marijuana Hx of Substance Use Treatment: Yes Family Psychiatric History Reports that his younger sister has a diagnosis of bipolar disorder and that his older sister committed suicide in May 2017. Allergies-Medications (Allergen,Severity, Reaction): Coded Allergies: No Known Allergies (Unverified , 09/12/16) Reported Meds & Prescriptions Reported Meds & Active Scripts Active No Active Prescriptions or Reported Medications Review of Systems Except as stated in HPI: all other systems reviewed are Neg Mental Status Examination Appearance: Appropriate, Well dressed/well groomed Consciousness: Alert Orientation: x4 Motor Activity: Normal gait Speech: Unremarkable Language: Adequate Fund of Knowledge: Adequate Attention and Concentration: Adequate Memory: Unremarkable Mood: Appropriate, Good Affect: Appropriate, Euthymic Thought Process & Associations: Intact, Logical Thought Content: Appropriate Hallucination Type: None Delusion Type: None Suicidal Ideation: No Suicidal Plan: No Suicidal Intention: No Homicidal Ideation: No Homicidal Plan: No Homicidal Intention: No Insight: Fair Judgment: Adequate [facility] Medical Decision Making Medical Record Reviewed: Yes Assessment/Plan This is a 32-year-old , male who presents to this facility for self-reported anxiety and depression. Upon examination this morning patient is awake, alert, and oriented 4. His speech is clear, logical, and organized. His speech is of normal festus and tender. There is no indication of internal stimulation nor thought blocking. He denies being suicidal, homicidal, experiencing auditory or visual hallucinations. He has a scheduled appointment with his psychiatrist Dr. Jackson outpatient. He reports that he came to the facility at his 's urging because she felt that he may be going through withdrawals. Patient relates that she woke him from sleep last night and he was soaked in sweat. Today his nurse reports that his vitals are within normal limits and patient has shown no outward clinical signs of withdrawal. Patient does not meet Perez act nor inpatient admission criteria. He will be discharged home with his who is taking him to his outpatient appointment. Contracts for safety and advises that he will return to this facility should his condition worsen. Orders Orders Complete Blood Count With Diff (02/04/18 01:10) Comprehensive Metabolic Panel (02/04/18 01:10) Psych Screen (02/04/18 01:10) Drug Screen, Random Urine (02/04/18 01:10) Hydroxyzine Pamoate (Vistaril) (02/04/18 02:15) Potassium Chloride (Kcl) (02/04/18 03:30) Diet Regular Basic (02/04/18 Breakfast) Ed Discharge Order (02/04/18 12:45) Results Vital Signs Date Time Temp Pulse Resp B/P (MAP) Pulse Ox O2 Delivery O2 Flow Rate FiO2 02/04/18 07:49 86 16 130/74 (92) 99 Room Air 02/04/18 01:11 98.4 77 15 133/79 (97) 99 Laboratory Tests Test 02/04/18 01:35 02/04/18 01:57 White Blood Count 11.4 Red Blood Count 4.89 Hemoglobin 15.2 Hematocrit 42.7 Mean Corpuscular Volume 87.4 Mean Corpuscular Hemoglobin 31.0 Mean Corpuscular Hemoglobin Concent 35.5 Red Cell Distribution Width 12.6 Platelet Count 247 Mean Platelet Volume 8.6 Neutrophils (%) (Auto) 76.1 Lymphocytes (%) (Auto) 16.2 Monocytes (%) (Auto) 6.8 Eosinophils (%) (Auto) 0.3 Basophils (%) (Auto) 0.6 Neutrophils # (Auto) 8.7 Lymphocytes # (Auto) 1.8 Monocytes # (Auto) 0.8 Eosinophils # (Auto) 0.0 Basophils # (Auto) 0.1 CBC Comment DIFF FINAL Differential Comment Blood Urea Nitrogen 13 Creatinine 1.12 Random Glucose 131 Total Protein 7.6 Albumin 4.2 Calcium Level 9.1 Alkaline Phosphatase 87 Aspartate Amino Transf (AST/SGOT) 16 Alanine Aminotransferase (ALT/SGPT) 25 Total Bilirubin 0.3 Sodium Level 142 Potassium Level 3.3 Chloride Level 105 Carbon Dioxide Level 26.0 Anion Gap 11 Estimat Glomerular Filtration Rate 76 Urine Opiates Screen NEG Urine Barbiturates Screen NEG Urine Amphetamines Screen NEG Urine Benzodiazepines Screen NEG Urine Cocaine Screen NEG Urine Cannabinoids Screen POS Diagnosis Primary Impression: Adjustment disorder Psychiatrically Cleared: Yes Referrals: Psychiatrist call for appointment Departure Forms: Tests/Procedures Patient Instructions: General Instructions Med/ Other Pt Specific Info: No Meds Exist/No RX given Prescriptions No Active Prescriptions or Reported Meds Disposition: 01 DISCHARGE HOME Condition: Stable Marilee Pro February 04, 2018 13:05
== END 2018-02-04 13:12 | disposition home or self-care (01) ==
LOC: NEPD 00:35
DX: F43.22 Adjustment disorder with anxiety (principal); F12.90 Cannabis use, unspecified, uncomplicated
CPT/HCPCS: 80053; 80307; 85025; 99283